=== PATIENT | female | born 1960 | race African-American/Black ===

== ENCOUNTER 2022-09-30 19:32 | Emergency (ER) | payer SELFPAY ==
[~2022-09-30] VITALS: Ht 162.6 cm; Wt 93.2 kg
[2022-09-30] MEDS: OXYMETAZOLINE HCL NASAL SPRAY 15ML BOTHNSTRLS SCH ×2 (20:15→21:45)
[2022-09-30] MEDS ORDERED: OXYM30SP26 LEFTNSTRL (22:07)
[2022-09-30] MEDS ORDERED: T3 PO (22:28)
[2022-09-30] MEDS ORDERED: ACETAMINOPHEN WITH CODEINE 300/30MG TABLET PO NR (22:30)
[2022-09-30] MEDS ORDERED: AMLODIPINE 10MG TABLET PO NR (22:30)
[2022-09-30] MEDS ORDERED: AMOX1TAB16 MT (22:50)
[2022-09-30 23:13] VITALS: BP 114/78
== END 2022-09-30 23:10 | disposition home or self-care (01) ==
LOC: ER 19:32
DX: R04.0 Epistaxis (principal); I10 Essential (primary) hypertension
CPT/HCPCS: 30901; 99283; Z7610

== ENCOUNTER 2022-10-03 15:48 | Emergency (ER) | payer SELFPAY ==
[~2022-10-03] VITALS: Ht 157.5 cm; Wt 87.0 kg
[~2022-10-03 15:48] MED LIST: AMOX1TAB16 MT; OXYM30SP26 LEFTNSTRL; T3 PO
[2022-10-03 15:53] VITALS: BP 159/90
== END 2022-10-03 17:44 | disposition home or self-care (01) ==
LOC: ER 16:38
DX: R04.0 Epistaxis (principal); I10 Essential (primary) hypertension
CPT/HCPCS: 99281